=== PATIENT | male | born 1930 | race Caucasian/White ===

== ENCOUNTER 2016-05-28 10:34 | Inpatient (IN) | payer OTHER ==
[~2016-05-28] VITALS: Ht 177.8 cm; Wt 104.7 kg
[~2016-05-28 10:34] MED LIST: Aspirin Chewable PO; CARDURA4 MG PO; COUMADIN3 M1 PO; Flexeril PO; LORTAB 7.5/51 TABLET PO; Omega III EPA + DHA PO; THERAGRAN1 TABLET PO
[2016-05-29 14:15] VITALS: BP 150/87
[2016-05-29] MEDS ORDERED: COUMADIN2 MG PO (16:35)
[2016-05-29] MEDS ORDERED: CARDURA8 MG PO (16:37)
[2016-05-29] MEDS ORDERED: COLACE100 MG PO (16:51)
[2016-05-29] MEDS ORDERED: HYDROCODON-ACE1 EAC7 PO (17:02)
[2016-05-29] MEDS ORDERED: MIRALAX17 GM PO (17:06)
[2016-05-29] MEDS ORDERED: LIPITOR80 MG PO (17:07)
[2016-05-29] MEDS ORDERED: POLYSPORIN30 GM TP (17:09)
[2016-05-29] MEDS ORDERED: CIPRODEX OTIC7.5 ML RIGHT EAR (17:09)
[2016-05-29] MEDS ORDERED: ZOSYN 3.3753.375 GM IV (17:10)
[2016-05-29 18:39] LABS: HEMATOCRIT 40.5 % (38.0-50.0); MCH 29.5 PG (29.0-34.0); MCHC 33.8 G/DL (30.0-36.0); MCV 87.3 FL (86-99); MEAN PLAT.VOLUME 9.4 uM^3 (9.0-12.4); PLATELET COUNT 156 K/uL (156-360); RBC DIS.WIDTH-CV 13.1 % (11.8-14.6); RBC DIS.WIDTH-SD 41.2 % (39-53); RED BLOOD COUNT 4.64 M/uL (4.00-5.50); WHITE BLOOD COUNT 8.5 K/uL (4.1-10.2)
[2016-05-29 19:31] LABS: ALKALINE PHOSPHATASE 30 IU/L (3-129); ANION GAP 7 MEQ/L (2-14); CHLORIDE 102 MEQ/L (99-109); GFR ESTIMATE (CALCULATED) > 59 mL/min/; GLUCOSE 118 mg/dL (70-99); POTASSIUM 3.3 MEQ/L (3.7-5.4); SAMPLE HEMOLYSIS CHECK 0; SAMPLE ICTERIC CHECK 0; SAMPLE LIPEMIA CHECK 0; SODIUM 137 MEQ/L (136-147); TOTAL BILIRUBIN 0.8 MG/DL (0.0-1.0); UREA NITROGEN (BUN) 15 mg/dL (9-23)
[2016-05-29 23:40] VITALS: BP 151/84
[2016-05-30 06:08] VITALS: BP 160/72
[2016-05-30 06:32] LABS: INTER. NORMALIZED RATIO 2.3; PROTHROMBIN TIME 23.9 (9.2-11.2)
[2016-05-30 11:46] LABS: LYME DISEASE SEROLOGY SCREEN NEGATIVE (NEGATIVE)
[2016-05-30] MEDS ORDERED: LASIX20 MG PO (12:17)
[2016-05-30] MEDS ORDERED: K-DUR20 MEQ PO (12:18)
[2016-05-30 16:10] VITALS: BP 147/82
[2016-05-31 05:45] VITALS: BP 132/68
[2016-05-31 05:49] LABS: INTER. NORMALIZED RATIO 2.5; PROTHROMBIN TIME 26.1 (9.2-11.2)
[2016-05-31 09:50] LABS: CHLORIDE 106 mEq/L (99-109); POTASSIUM 3.8 mEq/L (3.7-5.4); SODIUM 139 mEq/L (136-147)
[2016-05-31 09:52] LABS: GLUCOSE 142 mg/dL (70-99)
[2016-05-31 09:54] LABS: ANION GAP 13 MEQ/L (2-14)
[2016-05-31 09:56] LABS: GFR ESTIMATE (CALCULATED) > 59 mL/min/
[2016-05-31 09:57] LABS: UREA NITROGEN (BUN) 19 mg/dL (9-23)
[2016-05-31 15:10] VITALS: BP 128/72
[2016-06-01 06:10] LABS: INTER. NORMALIZED RATIO 2.4; PROTHROMBIN TIME 25.3 (9.2-11.2)
[2016-06-01 06:50] VITALS: BP 146/76
[2016-06-01 15:51] VITALS: BP 178/95
[2016-06-01 16:16] VITALS: BP 136/80
[2016-06-02 05:01] VITALS: BP 133/77
[2016-06-02 06:44] LABS: INTER. NORMALIZED RATIO 2.4; PROTHROMBIN TIME 25.5 (9.2-11.2)
[2016-06-02 15:52] VITALS: BP 179/86
[2016-06-02 18:24] VITALS: BP 159/68
[2016-06-03 05:33] VITALS: BP 155/87
[2016-06-03 06:03] LABS: INTER. NORMALIZED RATIO 2.3; PROTHROMBIN TIME 23.6 (9.2-11.2)
[2016-06-03 06:14] LABS: ALKALINE PHOSPHATASE 32 IU/L (3-129); ANION GAP 9 MEQ/L (2-14); CHLORIDE 105 MEQ/L (99-109); GFR ESTIMATE (CALCULATED) > 59 mL/min/; GLUCOSE 146 mg/dL (70-99); POTASSIUM 3.9 MEQ/L (3.7-5.4); SAMPLE HEMOLYSIS CHECK 0; SAMPLE ICTERIC CHECK 0; SAMPLE LIPEMIA CHECK 0; SODIUM 139 MEQ/L (136-147); UREA NITROGEN (BUN) 16 mg/dL (9-23)
[2016-06-03 06:15] LABS: HEMATOCRIT 39.2 % (38.0-50.0); MCH 28.9 PG (29.0-34.0); MCHC 33.4 G/DL (30.0-36.0); MCV 86.5 FL (86-99); MEAN PLAT.VOLUME 10.1 uM^3 (9.0-12.4); RBC DIS.WIDTH-CV 12.9 % (11.8-14.6); RBC DIS.WIDTH-SD 40.9 % (39-53); RED BLOOD COUNT 4.53 M/uL (4.00-5.50); WHITE BLOOD COUNT 7.6 K/uL (4.1-10.2)
[2016-06-03 06:17] LABS: TOTAL BILIRUBIN 0.5 MG/DL (0.0-1.0)
[2016-06-03 06:27] LABS: PLATELET COUNT 206 K/uL (156-360)
[2016-06-03 16:40] VITALS: BP 162/80
[2016-06-04 05:13] VITALS: BP 158/86
[2016-06-04 05:17] LABS: INTER. NORMALIZED RATIO 2.6; PROTHROMBIN TIME 26.9 (9.2-11.2)
[2016-06-04 07:51] VITALS: BP 157/82
[2016-06-04 15:41] VITALS: BP 145/98
[2016-06-04] MEDS ORDERED: BAYER CHEWABLE81 MG PO (15:46)
[2016-06-05 05:06] VITALS: BP 142/78
[2016-06-05 06:26] LABS: INTER. NORMALIZED RATIO 2.2; PROTHROMBIN TIME 23.2 (9.2-11.2)
[2016-06-05 09:13] VITALS: BP 176/82
[2016-06-05 15:35] VITALS: BP 159/82
[2016-06-06 05:22] LABS: INTER. NORMALIZED RATIO 1.9; PROTHROMBIN TIME 20.2 (9.2-11.2)
[2016-06-06 05:41] LABS: ALKALINE PHOSPHATASE 33 IU/L (3-129); ANION GAP 6 MEQ/L (2-14); CHLORIDE 101 MEQ/L (99-109); GFR ESTIMATE (CALCULATED) > 59 mL/min/; GLUCOSE 165 mg/dL (70-99); POTASSIUM 3.4 MEQ/L (3.7-5.4); SAMPLE HEMOLYSIS CHECK 0; SAMPLE ICTERIC CHECK 0; SAMPLE LIPEMIA CHECK 0; SODIUM 137 MEQ/L (136-147); TOTAL BILIRUBIN 0.5 MG/DL (0.0-1.0); UREA NITROGEN (BUN) 18 mg/dL (9-23)
[2016-06-06 05:44] LABS: HEMATOCRIT 41.7 % (38.0-50.0); MCH 29.2 PG (29.0-34.0); MCHC 33.8 G/DL (30.0-36.0); MCV 86.3 FL (86-99); MEAN PLAT.VOLUME 9.3 uM^3 (9.0-12.4); PLATELET COUNT 241 K/uL (156-360); RBC DIS.WIDTH-CV 12.8 % (11.8-14.6); RBC DIS.WIDTH-SD 39.9 % (39-53); RED BLOOD COUNT 4.83 M/uL (4.00-5.50)
[2016-06-06 05:48] LABS: WHITE BLOOD COUNT 11.2 K/uL (4.1-10.2)
[2016-06-06 06:12] VITALS: BP 166/83
[2016-06-06 15:09] VITALS: BP 136/97
[2016-06-07 06:09] VITALS: BP 140/78
[2016-06-07 06:14] LABS: INTER. NORMALIZED RATIO 1.7; PROTHROMBIN TIME 17.4 (9.2-11.2)
[2016-06-07 15:42] VITALS: BP 137/85
[2016-06-07 16:53] LABS: HEMATOCRIT 45.6 % (38.0-50.0); MCH 29.3 PG (29.0-34.0); MCHC 33.8 G/DL (30.0-36.0); MCV 86.9 FL (86-99); MEAN PLAT.VOLUME 9.3 uM^3 (9.0-12.4); PLATELET COUNT 242 K/uL (156-360); RBC DIS.WIDTH-CV 13.1 % (11.8-14.6); RBC DIS.WIDTH-SD 39.9 % (39-53); RED BLOOD COUNT 5.25 M/uL (4.00-5.50)
[2016-06-07 17:20] LABS: ANION GAP 9 MEQ/L (2-14); CHLORIDE 101 MEQ/L (99-109); GFR ESTIMATE (CALCULATED) > 59 mL/min/; GLUCOSE 171 mg/dL (70-99); SAMPLE HEMOLYSIS CHECK 0; SAMPLE ICTERIC CHECK 0; SAMPLE LIPEMIA CHECK 0; SODIUM 137 MEQ/L (136-147); UREA NITROGEN (BUN) 16 mg/dL (9-23)
[2016-06-07 17:21] LABS: POTASSIUM 4.4 MEQ/L (3.7-5.4)
[2016-06-08 05:43] VITALS: BP 135/71
[2016-06-08 06:43] LABS: INTER. NORMALIZED RATIO 1.7; PROTHROMBIN TIME 18.1 (9.2-11.2)
[2016-06-08 14:42] VITALS: BP 179/90
[2016-06-08 15:10] VITALS: BP 145/77
[2016-06-09 04:50] VITALS: BP 153/92
[2016-06-09 05:33] LABS: HEMATOCRIT 43.4 % (38.0-50.0); MCH 29.4 PG (29.0-34.0); MCHC 33.6 G/DL (30.0-36.0); MCV 87.5 FL (86-99); MEAN PLAT.VOLUME 9.4 uM^3 (9.0-12.4); PLATELET COUNT 208 K/uL (156-360); RBC DIS.WIDTH-CV 13.2 % (11.8-14.6); RBC DIS.WIDTH-SD 40.2 % (39-53); RED BLOOD COUNT 4.96 M/uL (4.00-5.50); WHITE BLOOD COUNT 9.4 K/uL (4.1-10.2)
[2016-06-09 05:49] LABS: INTER. NORMALIZED RATIO 1.6; PROTHROMBIN TIME 16.7 (9.2-11.2)
[2016-06-09 05:52] LABS: ANION GAP 7 MEQ/L (2-14); CHLORIDE 103 MEQ/L (99-109); GFR ESTIMATE (CALCULATED) > 59 mL/min/; GLUCOSE 148 mg/dL (70-99); POTASSIUM 3.6 MEQ/L (3.7-5.4); SAMPLE HEMOLYSIS CHECK 0; SAMPLE ICTERIC CHECK 0; SAMPLE LIPEMIA CHECK 0; SODIUM 138 MEQ/L (136-147); UREA NITROGEN (BUN) 15 mg/dL (9-23)
[2016-06-09 13:50] VITALS: BP 159/97
[2016-06-09 17:07] VITALS: BP 131/82
[2016-06-09 22:30] LABS: ACETYLCHOLINE RECP BIND ABY+ <0.30 nmol/L (<=0.30)
[2016-06-10 05:38] LABS: EOSINOPHIL (%) 1.7 % (0-5); EOSINOPHIL COUNT 0.2 K/uL (0-0.3); HEMATOCRIT 43.2 % (38.0-50.0); IMMATURE GRANULOCYTE (%) 0.8 % (0.0-0.7); IMMATURE GRANULOCYTE COUNT 0.1 K/uL; INSTRUMENT ABS NEUTROPHIL CT 6.4 K/uL; LYMPHOCYTE COUNT 1.4 K/uL (1.0-2.8); MCH 29.1 PG (29.0-34.0); MCHC 33.3 G/DL (30.0-36.0); MCV 87.3 FL (86-99); MEAN PLAT.VOLUME 9.6 uM^3 (9.0-12.4); MONOCYTE (%) 8.6 % (3-12); MONOCYTE COUNT 0.8 K/uL (0-0.8); NEUTROPHIL (%) 72.6 % (45-76); NEUTROPHIL COUNT 6.4 K/uL (1.8-6.4); PLATELET COUNT 193 K/uL (156-360); RBC DIS.WIDTH-CV 13.5 % (11.8-14.6); RBC DIS.WIDTH-SD 40.7 % (39-53); RED BLOOD COUNT 4.95 M/uL (4.00-5.50); WHITE BLOOD COUNT 8.8 K/uL (4.1-10.2)
[2016-06-10 05:39] LABS: INTER. NORMALIZED RATIO 1.2
[2016-06-10 05:41] VITALS: BP 148/84
[2016-06-10 05:57] LABS: ANION GAP 6 MEQ/L (2-14); CHLORIDE 105 MEQ/L (99-109); GFR ESTIMATE (CALCULATED) > 59 mL/min/; GLUCOSE 128 mg/dL (70-99); POTASSIUM 3.7 MEQ/L (3.7-5.4); SAMPLE HEMOLYSIS CHECK 0; SAMPLE ICTERIC CHECK 0; SAMPLE LIPEMIA CHECK 0; SODIUM 137 MEQ/L (136-147); UREA NITROGEN (BUN) 13 mg/dL (9-23)
[2016-06-10 16:05] VITALS: BP 131/77
[2016-06-11 05:01] LABS: INTER. NORMALIZED RATIO 1.1; PROTHROMBIN TIME 11.1 (9.2-11.2)
[2016-06-11 06:41] VITALS: BP 163/87
[2016-06-11 15:35] VITALS: BP 158/80
[2016-06-12 05:26] VITALS: BP 143/80
[2016-06-12 06:06] LABS: INTER. NORMALIZED RATIO 1.1; PROTHROMBIN TIME 10.7 (9.2-11.2)
[2016-06-12 10:45] VITALS: BP 132/72
[2016-06-12 14:52] VITALS: BP 138/82
[2016-06-12 15:36] LABS: STRIATED (SKELETAL) MUSCLE AB+ NEGATIVE titer (NEGATIVE)
[2016-06-13 05:24] LABS: PROTHROMBIN TIME 10.6 (9.2-11.2)
[2016-06-13 05:36] VITALS: BP 133/73
[2016-06-13 15:51] VITALS: BP 149/83
[2016-06-14 05:53] LABS: INTER. NORMALIZED RATIO 1.2
[2016-06-14 05:54] VITALS: BP 183/88
[2016-06-14 06:16] LABS: ALKALINE PHOSPHATASE 37 IU/L (3-129); ANION GAP 8 MEQ/L (2-14); CHLORIDE 100 MEQ/L (99-109); GLUCOSE 265 mg/dL (70-99); POTASSIUM 3.9 MEQ/L (3.7-5.4); SAMPLE HEMOLYSIS CHECK 0; SAMPLE ICTERIC CHECK 0; SAMPLE LIPEMIA CHECK 0; SODIUM 137 MEQ/L (136-147); TOTAL BILIRUBIN 0.5 MG/DL (0.0-1.0)
[2016-06-14 06:21] LABS: GFR ESTIMATE (CALCULATED) 51 mL/min/; UREA NITROGEN (BUN) 27 mg/dL (9-23)
[2016-06-14 06:32] LABS: HEMATOCRIT 42.5 % (38.0-50.0); MCH 29.3 PG (29.0-34.0); MCHC 33.2 G/DL (30.0-36.0); MCV 88.2 FL (86-99); PLATELET COUNT 165 K/uL (156-360); RBC DIS.WIDTH-CV 14.3 % (11.8-14.6); RBC DIS.WIDTH-SD 41.5 % (39-53); RED BLOOD COUNT 4.82 M/uL (4.00-5.50)
[2016-06-14 07:00] LABS: WHITE BLOOD COUNT 11.8 K/uL (4.1-10.2)
[2016-06-14 10:01] VITALS: BP 192/84
[2016-06-14 15:00] VITALS: BP 154/74
[2016-06-15 04:44] VITALS: BP 119/70
[2016-06-15 05:45] LABS: INTER. NORMALIZED RATIO 1.7; PROTHROMBIN TIME 17.4 (9.2-11.2)
[2016-06-15 05:54] LABS: ANION GAP 9 MEQ/L (2-14); CHLORIDE 102 MEQ/L (99-109); GFR ESTIMATE (CALCULATED) > 59 mL/min/; GLUCOSE 328 mg/dL (70-99); POTASSIUM 3.9 MEQ/L (3.7-5.4); SAMPLE HEMOLYSIS CHECK 0; SAMPLE ICTERIC CHECK 0; SAMPLE LIPEMIA CHECK 0; SODIUM 139 MEQ/L (136-147); UREA NITROGEN (BUN) 32 mg/dL (9-23)
[2016-06-15 06:33] LABS: HEMATOCRIT 41.4 % (38.0-50.0); MCH 29.6 PG (29.0-34.0); MCHC 33.3 G/DL (30.0-36.0); MCV 88.7 FL (86-99); MEAN PLAT.VOLUME 10.6 uM^3 (9.0-12.4); PLATELET COUNT 153 K/uL (156-360); RBC DIS.WIDTH-SD 43.5 % (39-53); RED BLOOD COUNT 4.67 M/uL (4.00-5.50)
[2016-06-15 07:06] LABS: WHITE BLOOD COUNT 21.4 K/uL (4.1-10.2)
[2016-06-15 07:13] LABS: ABS NEUTROPHIL COUNT 19.4; BAND NEUTROPHILS 0.9 % (0-8.0); EOSINOPHIL ABS CT 0; INSTRUMENT ABS NEUTROPHIL CT 18.3 K/uL; LYMPHOCYTES 2.6 % (15.0-45.0); SEG.NEUTROPHILS 89.6 % (46.0-76.0)
[2016-06-15 08:20] LABS: ADD MIUA? NO; BILIRUBIN NEGATIVE; BLOOD NEGATIVE; COLOR YELLOW ((YELLOW)); GLUCOSE (STRIP) >=500; KETONES NEGATIVE; LEUKOCYTES NEGATIVE; NITRITE NEGATIVE; PROTEIN (STRIP) NEGATIVE; SPECIFIC GRAVITY 1.014 (1.000-1.030); UROBILINOGEN 0.2 MG/DL (0.2-1.0)
[2016-06-15 12:47] LABS: BASE EXCESS 9.4 mEq/L (-3 to +3); BICARBONATE 33.5 mEq/L (22-26); CARBOXY HGB 2.2 % (0-5); COMMENTS - BLOOD GASES A+C+; DEVICE NC; METHEMOGLOBIN 1.7 % (0-1.5); O2 FLOW 1 L/MIN; PCO2 42 mm Hg (35-45); PO2 55 mm Hg (80-100); SITE LR; TOTAL RESP RATE 28 resp/min; pH 7.51 (7.35-7.45)
== END 2016-06-15 13:30 | DRG 56 ==
LOC: 3WEST 10:34
PROVIDERS: Hospitalist; Internal Medicine Nephrology; Physical Medicine & Rehabilitation Pain Medicine; Psychiatry & Neurology Neurology; Specialist
PROC: 0DH68UZ Insertion of Feeding Device into Stomach, Via Natural or Artificial Opening Endoscopic (ICD-10-PCS; principal; 2016-05-29)
PROC: F07M0ZZ Range of Motion and Joint Mobility Treatment of Musculoskeletal System - Whole Body (ICD-10-PCS; 2016-06-09)
DX: I69.351 Hemiplegia and hemiparesis following cerebral infarction affecting right dominant side (principal); G93.40 Encephalopathy, unspecified; J69.0 Pneumonitis due to inhalation of food and vomit; A41.9 Sepsis, unspecified organism; N39.0 Urinary tract infection, site not specified; B02.0 Zoster encephalitis; J98.11 Atelectasis; N17.9 Acute kidney failure, unspecified; Q21.1 Atrial septal defect; T83.511A Infection and inflammatory reaction due to indwelling urethral catheter, initial encounter; I69.392 Facial weakness following cerebral infarction; L89.152 Pressure ulcer of sacral region, stage 2; H61.001 Unspecified perichondritis of right external ear; R41.3 Other amnesia; G89.29 Other chronic pain; R73.9 Hyperglycemia, unspecified; K59.03 Drug induced constipation; N13.9 Obstructive and reflux uropathy, unspecified; I69.393 Ataxia following cerebral infarction; E83.51 Hypocalcemia; E87.6 Hypokalemia; N47.1 Phimosis; N40.1 Benign prostatic hyperplasia with lower urinary tract symptoms; R33.9 Retention of urine, unspecified; H91.90 Unspecified hearing loss, unspecified ear; F03.90 Unspecified dementia, unspecified severity, without behavioral disturbance, psychotic disturbance, mood disturbance, and anxiety; I69.322 Dysarthria following cerebral infarction; G51.0 Bell's palsy; R13.12 Dysphagia, oropharyngeal phase; E66.9 Obesity, unspecified; Z68.33 Body mass index [BMI] 33.0-33.9, adult; Y84.6 Urinary catheterization as the cause of abnormal reaction of the patient, or of later complication, without mention of misadventure at the time of the procedure
CPT/HCPCS: 36600; 70450; 70551; 71010; 71020; 74000; 74230; 80048; 80053; 80069; 81003; 82803; 83520 90; 84238 90; 85025; 85027; 85610; 86255 90; 86618; 87040; 87077; 87086; 87186; 92507 GN; 92523 GN; 92526 GN; 92610 GN; 92611 GN; 97110 GO; 97530 GP; J0133; J0690; J1650; J2543; J2920; J3430; J3480; J7030; J7050

== ENCOUNTER 2016-06-15 12:33 | Inpatient (IN) | payer OTHER ==
[~2016-06-15 12:33] MED LIST changes: +BAYER CHEWABLE81 MG PO; +CARDURA8 MG PO; +CIPRODEX OTIC7.5 ML RIGHT EAR; +COLACE100 MG PO; +COUMADIN2 MG PO; +HYDROCODON-ACE1 EAC7 PO; +K-DUR20 MEQ PO; +LASIX20 MG PO; +LIPITOR80 MG PO; +MIRALAX17 GM PO; +POLYSPORIN30 GM TP; +ZOSYN 3.3753.375 GM IV
[2016-06-15 13:53] VITALS: BP 121/55
[2016-06-15 14:57] LABS: INFLUENZA A VIRAL ANTIGEN NEGATIVE; INFLUENZA B VIRAL ANTIGEN NEGATIVE
[2016-06-15 15:10] VITALS: BP 140/78
[2016-06-16 19:47] VITALS: BP 120/71
== END 2016-06-17 02:40 | DRG 871 ==
LOC: 4EAST 12:33 → 5EAST 13:23 → 2SOUTH 13:23 → 4EAST 13:31 → 5EAST 06-16 19:22
PROVIDERS: Hospitalist
PROC: 5A0935Z Assistance with Respiratory Ventilation, Less than 24 Consecutive Hours (ICD-10-PCS; principal; 2016-06-15)
DX: A41.9 Sepsis, unspecified organism (principal); J69.0 Pneumonitis due to inhalation of food and vomit; J96.01 Acute respiratory failure with hypoxia; G93.40 Encephalopathy, unspecified; B02.21 Postherpetic geniculate ganglionitis; G45.3 Amaurosis fugax; N39.0 Urinary tract infection, site not specified; R73.9 Hyperglycemia, unspecified; Z51.5 Encounter for palliative care; M19.90 Unspecified osteoarthritis, unspecified site; Z79.01 Long term (current) use of anticoagulants
CPT/HCPCS: 83605; 85610; 87502; J0133; J1650; J1940; J2060; J2270; J3370; J7040; J7050